=== PATIENT | male | born 1965 | race Two or more races ===

== ENCOUNTER 2016-12-11 17:01 | Emergency (ER) | payer BC ==
[~2016-12-11] VITALS: Ht 172.7 cm; Wt 68.0 kg
[2016-12-11 17:02] VITALS: BP 154/85
[2016-12-11] MEDS ORDERED: ALBU17IN INH (17:59)
[2016-12-11] MEDS ORDERED: ALBUTEROL 90 MCG/ACT 8GM HFA INHALER INH ONE (18:00)
== END 2016-12-11 18:21 | disposition home or self-care (01) ==
LOC: M ED 18:17
DX: J44.1 Chronic obstructive pulmonary disease with (acute) exacerbation (principal); F17.200 Nicotine dependence, unspecified, uncomplicated

== ENCOUNTER → 2016-12-20 | Outpatient (CLI) | payer BC ==
[~2016-12-20] MED LIST: ALBU17IN INH
--- NOTE | 2016-12-20 16:27 | REP ---
Chest two views HISTORY: Cough Comparison: None The lungs are clear. The heart is normal in size. The pulmonary vasculature is normal in appearance. The bony structure is intact. IMPRESSION: No acute disease. Signed by Cain Schulz MD 12/20/2016 04:19 P
[2016-12-20 19:45] LABS: BASO # 0.1 K/mm3 (0.0-0.2); BASO % 0.9 % (0.0-1.0); EOS # 0.1 K/mm3 (0.0-0.50); EOS % 1.4 % (0.0-3.0); LARGE UNSTAINED CELL # 0.2 K/mm3 (0.0-0.4); LARGE UNSTAINED CELL % 1.7 % (0.0-4.0); LYMPH # 2.8 K/mm3 (1.5-4.5); LYMPH % 31.6 % (24.0-44.0); MEAN CORPUSCULAR HEMOGLOBIN 30.8 pg (27.0-33.0); MEAN CORPUSCULAR HGB CONC 33.7 g/dl (32.0-36.5); MEAN CORPUSCULAR VOLUME 91.4 fl (80.0-96.0); MONO # 0.5 K/mm3 (0.0-0.8); MONO % 6.2 % (0.0-5.0); NEUTROPHILS # 4.9 K/mm3 (1.8-7.7); NEUTROPHILS % 58.1 % (36.0-66.0); PLATELET COUNT, AUTOMATED 221 k/mm3 (150-450); RED CELL DISTRIBUTION WIDTH 13.5 % (11.5-14.5); WHITE BLOOD COUNT 8.4 K/mm3 (4.0-10.0)
[2016-12-20 20:54] LABS: ALBUMIN/GLOBULIN RATIO 1.29 (1.00-1.93); ALKALINE PHOSPHATASE 79 U/L (45-117); ALT/SGPT 22 U/L (12-78); ANION GAP 6 MEQ/L (8-16); AST/SGOT 16 U/L (15-37); BILIRUBIN,TOTAL 0.4 MG/DL (0.2-1.0); BLOOD UREA NITROGEN 14 MG/DL (7-18); CALCIUM LEVEL 9.2 MG/DL (8.5-10.1); CARBON DIOXIDE LEVEL 29 MEQ/L (21-32); CHLORIDE LEVEL 106 MEQ/L (98-107); CHOLESTEROL LEVEL 175 MG/DL (<200); CREATININE FOR GFR 0.77 MG/DL (0.70-1.30); GLOMERULAR FILTRATION RATE > 60.0 (>56); GLUCOSE, FASTING 82 MG/DL (70-105); POTASSIUM SERUM 3.9 MEQ/L (3.5-5.1); SODIUM LEVEL 141 MEQ/L (136-145); TOTAL PROTEIN 7.1 GM/DL (6.4-8.2); TRIGLYCERIDES LEVEL 116 MG/DL (<150)
== END ==
LOC: M ADAMS 15:30
PROVIDERS: ATTEND Family Medicine
DX: Z00.00 Encounter for general adult medical examination without abnormal findings (principal); R05 Cough

== ENCOUNTER 2017-10-27 09:11 | Emergency (ER) | payer BC ==
[2017-10-27] MEDS: AUGMENTIN 875 MG TAB PO (09:51)
[2017-10-27 10:29] LABS: CK-MB VALUE MASS 3.2 NG/ML (0.0-3.6); CPK CREATINE PHOSPHOKINASE 123 U/L (39-308); TROPONIN I < 0.02 NG/ML (< 0.10)
== END 2017-10-27 11:20 | disposition home or self-care (01) ==
LOC: M ED 09:11
DX: K04.7 Periapical abscess without sinus (principal); R00.2 Palpitations; J43.9 Emphysema, unspecified; J45.909 Unspecified asthma, uncomplicated
CPT/HCPCS: 71046

== ENCOUNTER 2018-04-21 13:06 | Emergency (ER) | payer BC ==
[2018-04-21] MEDS: KETOROLAC 30 MG/ML VIAL (J1885) IV (13:59)
[2018-04-21] MEDS: NS 500 ML IV (13:59)
[2018-04-21 14:08] LABS: BASO # 0.1 10^3/uL (0.0-0.2); BASO % 0.7 % (0.0-1.0); EOS # 0.1 10^3/uL (0.0-0.50); EOS % 0.6 % (0.0-3.0); HEMOGLOBIN 15.7 g/dl (13.5-17.5); IMMATURE GRANULOCYTE % 0.2 % (0-3.0); LYMPH # 1.8 10^3/uL (1.5-4.5); LYMPH % 20.1 % (24.0-44.0); MEAN CORPUSCULAR HEMOGLOBIN 30.7 pg (27.0-33.0); MEAN CORPUSCULAR HGB CONC 34.1 g/dl (32.0-36.5); MEAN CORPUSCULAR VOLUME 89.8 fl (80.0-96.0); MONO # 0.4 10^3/uL (0.0-0.8); MONO % 4.8 % (0.0-5.0); NEUTROPHILS # 6.6 10^3/uL (1.8-7.7); NEUTROPHILS % 73.6 % (36.0-66.0); PLATELET COUNT, AUTOMATED 220 10^3/uL (150-450); RED BLOOD COUNT 5.12 10^6/uL (4.30-6.10)
[2018-04-21 14:18] LABS: AMORPHOUS SEDIMENT RFX MODERATE (NEGATIVE); KETONE, URINE AUTO RFX NEGATIVE (NEGATIVE); LEUKOCYTE ESTERASE UR AUTO RFX NEGATIVE (NEGATIVE); MUCUS, URINE RFX SMALL (NEGATIVE); NITRITE, URINE AUTO RFX NEGATIVE (NEGATIVE); RBC, URINE AUTO RFX 1 /HPF (0-3); SPECIFIC GRAVITY UR AUTO RFX 1.016 (1.002-1.035); SQUAM EPITHELIAL CELL UR AURFX 0 /HPF (0-6); WBC, URINE AUTO RFX 0 /HPF (0-3)
[2018-04-21 14:33] LABS: ALBUMIN 3.9 GM/DL (3.2-5.2); ALBUMIN/GLOBULIN RATIO 1.08 (1.00-1.93); ALKALINE PHOSPHATASE 98 U/L (45-117); ALT/SGPT 27 U/L (12-78); ANION GAP 7 MEQ/L (8-16); AST/SGOT 17 U/L (7-37); BILIRUBIN,DIRECT < 0.1 MG/DL (0.0-0.2); BILIRUBIN,TOTAL 0.3 MG/DL (0.2-1.0); BLOOD UREA NITROGEN 17 MG/DL (7-18); C REACTIVE PROTEIN QUANTITATIV < 0.30 MG/DL (0.00-0.30); CALCIUM LEVEL 9.1 MG/DL (8.5-10.1); CARBON DIOXIDE LEVEL 28 MEQ/L (21-32); CHLORIDE LEVEL 109 MEQ/L (98-107); CREATININE FOR GFR 0.98 MG/DL (0.70-1.30); GLOMERULAR FILTRATION RATE > 60.0 (>56); GLUCOSE, FASTING 131 MG/DL (70-100); POTASSIUM SERUM 4.3 MEQ/L (3.5-5.1); SODIUM LEVEL 144 MEQ/L (136-145); TOTAL PROTEIN 7.5 GM/DL (6.4-8.2)
== END 2018-04-21 15:27 | disposition home or self-care (01) ==
LOC: M ED 13:06
DX: N28.1 Cyst of kidney, acquired (principal); K08.409 Partial loss of teeth, unspecified cause, unspecified class; K02.9 Dental caries, unspecified; J44.9 Chronic obstructive pulmonary disease, unspecified; J45.909 Unspecified asthma, uncomplicated; F17.200 Nicotine dependence, unspecified, uncomplicated; Z87.442 Personal history of urinary calculi
CPT/HCPCS: J1885

== ENCOUNTER 2019-12-08 13:25 | Emergency (ER) | payer BC, MEDICAID, SELFPAY ==
[~2019-12-08] VITALS: Ht 172.7 cm; Wt 68.2 kg
[~2019-12-08 13:25] MED LIST changes: +AUGM875T28 PO; +KETO10TAB PO; +PROAAER10 INH
[2019-12-08 14:01] LABS: BASO # 0.1 10^3/uL (0.0-0.2); BASO % 0.7 % (0.0-1.0); EOS # 0.1 10^3/uL (0.0-0.5); EOS % 1.1 % (0.0-3.0); HEMATOCRIT 46.5 % (42.0-52.0); HEMOGLOBIN 15.6 g/dl (13.5-17.5); LYMPH # 1.8 10^3/uL (1.5-5.0); LYMPH % 24.3 % (24.0-44.0); MEAN CORPUSCULAR HEMOGLOBIN 30.2 pg (27.0-33.0); MEAN CORPUSCULAR HGB CONC 33.5 g/dl (32.0-36.5); MEAN CORPUSCULAR VOLUME 89.9 fl (80.0-96.0); MONO # 0.6 10^3/uL (0.0-0.8); MONO % 7.7 % (0.0-5.0); NEUTROPHILS # 4.9 10^3/uL (1.5-8.5); NEUTROPHILS % 66.1 % (36.0-66.0); PLATELET COUNT, AUTOMATED 207 10^3/uL (150-450); RED BLOOD COUNT 5.17 10^6/uL (4.30-6.10); WHITE BLOOD COUNT 7.4 10^3/uL (4.0-10.0)
[2019-12-08 14:12] LABS: INR 1.03; PROTHROMBIN TIME 13.2 SECONDS (11.8-14.0)
[2019-12-08] MEDS ORDERED: NITROGLYCERIN 2% OINT 1 GM *U/D* PKT TOP ONE (14:15)
[2019-12-08] MEDS ORDERED: ISOVUE-370 76% 100ML VIAL (Q9967) As Ordered ONE (14:21)
--- NOTE | 2019-12-08 14:29 | REP ---
REASON: Chest pain. FINDINGS: The technique utilized in obtaining the radiograph has magnified the cardiac silhouette and accentuated the interstitial markings. The superior mediastinal structures are midline. The cardiac silhouette is unremarkable in size, shape, and position. The diaphragmatic surfaces of the lungs are regular, and the costophrenic angles are clear. The pulmonary sotomayor are clear. The imaged osseous structures are intact. IMPRESSION: There is no acute cardiopulmonary disease. Electronically Signed by Keith Vera DO 12/08/2019 03:00 P
[2019-12-08 14:57] LABS: ALBUMIN 3.8 GM/DL (3.2-5.2); ALT/SGPT 28 U/L (12-78); BILIRUBIN,DIRECT 0.1 MG/DL (0.0-0.2); BILIRUBIN,TOTAL 0.3 MG/DL (0.2-1.0); BLOOD UREA NITROGEN 17 MG/DL (7-18); CALCIUM LEVEL 8.9 MG/DL (8.5-10.1); CARBON DIOXIDE LEVEL 26 MEQ/L (21-32); CHLORIDE LEVEL 107 MEQ/L (98-107); CK-MB VALUE MASS 14.2 NG/ML (<3.6); CPK CREATINE PHOSPHOKINASE 254 U/L (39-308); CREATININE FOR GFR 0.85 MG/DL (0.70-1.30); FREE T4 1.01 NG/DL (0.76-1.46); GLOMERULAR FILTRATION RATE > 60.0 (>56); GLUCOSE, FASTING 120 MG/DL (70-100); LIPASE 87 U/L (73-393); MB/CK RELATIVE INDEX 5.59 (< OR =4); POTASSIUM SERUM 4.2 MEQ/L (3.5-5.1); SODIUM LEVEL 141 MEQ/L (136-145); TOTAL PROTEIN 7.4 GM/DL (6.4-8.2); TROPONIN I 2.52 NG/ML (< 0.10)
[2019-12-08] MEDS ORDERED: ASPIRIN 81 MG CHEW TABLET PO ONE (15:15)
[2019-12-08] MEDS ORDERED: HEPARIN DRIP 25,000 UNITS in IV 1 EA IV SCH (15:41)
[2019-12-08] MEDS ORDERED: CLOPIDOGREL 300 MG TAB (PLAVIX) PO ONE (15:45)
[2019-12-08] MEDS ORDERED: HEPARIN SOD (PORCINE) 5000UNITS/ML VIAL (J1644 PER 1000UNITS) IV ONE (15:45)
[2019-12-08] MEDS ORDERED: METOPROLOL TART 25 MG TABLET PO ONE (15:45)
[2019-12-08 15:56] VITALS: BP 136/85
[2019-12-08 16:30] VITALS: BP 125/76
--- NOTE | 2019-12-08 16:30 | REP ---
REASON: Chest pain. CONTRAST: 100 mL Isovue 370. PRIORS: None. There is excellent visualization of the thoracic aorta with optimal contrast opacification. There is no aneurysm or dissection. Although not performed as a pulmonary angio CT, there is also good visualization of the pulmonary vascularity showing no abnormalities. There are no pleural or pericardial effusions. There is no mediastinal or hilar mass or adenopathy. The imaged upper abdomen shows a partially imaged left renal cyst. The imaged osseous structures are within normal limits. Evaluation of the lung sotomayor shows evidence of biapical pleuroparenchymal scarring along with parenchymal bulla and pleural blebs particularly in the lung apical regions but seen scattered throughout the lung sotomayor. In the superior segment of the right lower lobe, there is 7 mm sized somewhat irregular nodule. In the lateral basal segment of the right lower lobe, there is a 1.1 cm sized subtle ground-glass opacity. IMPRESSION: 1. No evidence of an intrathoracic vascular abnormality as described above. 2. Ground-glass opacity and nodule in the right lung as described above. According to the revised Fleischner society criteria, a 3-month followup CT examination of the chest is warranted. There are no priors for comparison. 3. Chronic lung field changes as described above. There is no revised Fleischner society criteria on the recommendation for followup of such chronic lung field findings. They too, can be followed in the 3-month recommended time period. Electronically Signed by Keith Vera DO 12/09/2019 10:53 A
--- NOTE | 2019-12-08 16:54 | REP ---
CT ANGIOGRAM ABDOMEN AND PELVIS: Following the intravenous administration of 100 of Isovue 370, CT angiogram of the abdomen and pelvis is performed, with sagittal, coronal and 3D MIP reconstruction images. Severe atherosclerotic plaquing and narrowing is seen of the distal abdominal aorta. There is occlusion of the distal abdominal aorta just above the bifurcation. Multiple collateral vessels extend distally. On the right, there is reconstitution of the proximal significantly narrowed external iliac artery, which becomes relatively normal in caliber distally. There is mild to moderate atherosclerotic plaquing of the right common femoral and superficial femoral arteries with patent flow distally into the right lower extremity. On the left, there is reconstitution of the right distal aspect of the external iliac artery. There is mild to moderate atherosclerotic plaquing and narrowing of the left common femoral and superficial femoral arteries with patent flow into the left lower extremity. Liver, spleen, adrenals, pancreas are unremarkable. There is a 2 cm cyst in the upper pole of the right kidney and a 3.2 cm cyst in the mid left kidney. There is no hydronephrosis bilaterally. There is no adenopathy, free air or free fluid. No bowel wall thickening is seen. The appendix is normal. Urinary bladder appears unremarkable. There are mild degenerative changes of the spine. IMPRESSION: Severe atherosclerotic disease distal abdominal aorta. Distal abdominal aorta is occluded just above the bifurcation. There is reconstitution of a thin right external iliac artery which becomes relatively normal in caliber at its distal aspect. There is reconstitution of the distal left external iliac artery. There is patent flow through both common femoral and superficial femoral arteries into both lower extremities. Electronically Signed by Yoandy Cordero MD 12/08/2019 07:50 P
--- NOTE | 2019-12-09 09:10 | ECGEPIP ---
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
--- NOTE | 2019-12-09 09:11 | ECGEPIP ---
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
== END 2019-12-08 16:41 | disposition short-term general hospital (02) ==
LOC: M ED 13:25
DX: I21.4 Non-ST elevation (NSTEMI) myocardial infarction (principal); J44.9 Chronic obstructive pulmonary disease, unspecified; F17.218 Nicotine dependence, cigarettes, with other nicotine-induced disorders
CPT/HCPCS: 71045; 71275; 74174; 80047; 80048; 80076; 82550; 82553; 83690; 84439; 84443; 85025; 85610; 85730; 93005; 93041; 94760; 96361; 96374; 99285; J1644; Q9967

== ENCOUNTER 2020-04-12 02:15 | Inpatient (IN) | payer MEDICAID, OTHER ==
[2020-04-12] MEDS ORDERED: propofoL 200 MG/20 ML VIAL ONE (07:14)
[2020-04-12] MEDS ORDERED: MIDAZOLAM INJ 2MG/2ML VIAL (J2250 PER 1MG) ONE (07:14)
[2020-04-12] MEDS ORDERED: SUGAMMADEX SODIUM 500 MG/5 ML VIAL (BRIDION) ONE (07:14)
[2020-04-12] MEDS ORDERED: fentaNYL 100 MCG/2 ML INJECTION (J3010) ONE ×2 (07:14→11:42)
[2020-04-12] MEDS ORDERED: ONDANSETRON 4MG/2ML VIAL ONE (07:14)
[2020-04-12] MEDS ORDERED: ACETAMINOPHEN 1000MG 100ML IV BTL (OFIRMEV) (J0131 PER 10MG) ONE (07:14)
[2020-04-12] MEDS ORDERED: LIDOCAINE 2% 100MG/5ML SDV (FOR ANES.) ONE (07:14)
[2020-04-12] MEDS ORDERED: dexameTHASONE 4 MG/ML 1ML VIAL (J1100 PER 1MG) ONE (07:14)
[2020-04-12] MEDS ORDERED: ROCURONIUM BROMIDE 50 MG/5 ML VIAL ONE ×3 (07:14→10:06)
[2020-04-12] MEDS ORDERED: ceFAZolin 2 GM/D5W 50 ML IV BAG (J0690 PER 500MG) As Ordered ONE ×2 (07:22→11:49)
[2020-04-12] MEDS ORDERED: HEPARIN SOD (PORCINE) 5000UNITS/ML 1ML VIAL/SYRINGE ONE ×2 (08:28→09:32)
[2020-04-12] MEDS ORDERED: GLYCOPYRROLATE INJ 0.2 MG/ML 2 ML VIAL ONE (08:53)
[2020-04-12] MEDS ORDERED: BUPIVACAINE/EPIN 0.5% 30 ML VIAL As Ordered ONE (11:49)
[2020-04-12] MEDS ORDERED: HEPARIN SOD (PORCINE) 5000UNITS/ML 1ML VIAL/SYRINGE As Ordered ONE ×2 (11:49→12:07)
[2020-04-12] MEDS ORDERED: PERCOCET 5MG/325MG TAB As Ordered ONE (14:26)
[2020-04-12] MEDS ORDERED: oxyCODONE 5MG TAB As Ordered ONE (14:27)
[2020-04-12] MEDS ORDERED: ATORVASTATIN 20 MG TAB ONE (20:40)
[2020-04-12] MEDS ORDERED: PERCOCET 5MG/325MG TAB ONE ×2 (22:25)
[2020-04-13] MEDS ORDERED: PERCOCET 5MG/325MG TAB ONE ×3 (06:51→17:41)
[2020-04-13] MEDS ORDERED: amLODIPine 5 MG TAB ONE (09:37)
[2020-04-13] MEDS ORDERED: ASPIRIN 81 MG ENTERIC TAB ONE (09:37)
[2020-04-13] MEDS ORDERED: CLOPIDOGREL 75 MG TAB ONE (14:27)
[2020-04-13] MEDS ORDERED: DOCUSATE SODIUM 100 MG CAP ONE (14:28)
[2020-04-13] MEDS ORDERED: PERCOCET 5MG/325MG TAB PO PRN (20:30)
[2020-04-13] MEDS ORDERED: diazePAM 5 MG TAB PO PRN (20:30)
[2020-04-13] MEDS ORDERED: ONDANSETRON 4MG/2ML VIAL IV PRN (20:30)
[2020-04-13] MEDS: ATORVASTATIN 20 MG TAB PO SCH (21:34)
[2020-04-13] MEDS: DOCUSATE SODIUM 100 MG CAP PO SCH (21:34)
[2020-04-13 21:36] LABS: HEMATOCRIT 41.5 % (42.0-52.0); HEMOGLOBIN 14.2 g/dl (13.5-17.5); MEAN CORPUSCULAR HEMOGLOBIN 30.7 pg (27.0-33.0); MEAN CORPUSCULAR HGB CONC 34.2 g/dl (32.0-36.5); MEAN CORPUSCULAR VOLUME 89.8 fl (80.0-96.0); PLATELET COUNT, AUTOMATED 193 10^3/uL (150-450); RED BLOOD COUNT 4.62 10^6/uL (4.30-6.10); WHITE BLOOD COUNT 11.9 10^3/uL (4.0-10.0)
[2020-04-13 21:56] LABS: BASO % 0.3 % (0.0-1.0); EOS # 0.1 10^3/uL (0.0-0.5); EOS % 0.8 % (0.0-3.0); LYMPH # 2.3 10^3/uL (1.5-5.0); LYMPH % 19.9 % (24.0-44.0); MONO % 8.4 % (0.0-5.0); NEUTROPHILS # 8.2 10^3/uL (1.5-8.5); NEUTROPHILS % 70.3 % (36.0-66.0)
[2020-04-13 22:00] VITALS: BP 145/83
[2020-04-14] MEDS ORDERED: BISACODYL 10 MG SUPP PR PRN (00:15)
[2020-04-14 02:00] VITALS: BP 120/84
[2020-04-14] MEDS: PERCOCET 5MG/325MG TAB PO PRN ×2 (04:41→12:28)
[2020-04-14 06:00] VITALS: BP 159/82
[2020-04-14] MEDS ORDERED: AMLO1TAB24 PO (06:22)
[2020-04-14] MEDS ORDERED: CLOP75TA2 PO (06:22)
[2020-04-14] MEDS ORDERED: ASPI1CHW3 PO (06:22)
[2020-04-14] MEDS ORDERED: ATOR40TA75 PO (06:22)
[2020-04-14 06:53] LABS: HEMATOCRIT 41.5 % (42.0-52.0); HEMOGLOBIN 14.4 g/dl (13.5-17.5); MEAN CORPUSCULAR HEMOGLOBIN 31.2 pg (27.0-33.0); MEAN CORPUSCULAR HGB CONC 34.7 g/dl (32.0-36.5); PLATELET COUNT, AUTOMATED 165 10^3/uL (150-450); RED BLOOD COUNT 4.61 10^6/uL (4.30-6.10); WHITE BLOOD COUNT 11.4 10^3/uL (4.0-10.0)
[2020-04-14 07:26] LABS: BLOOD UREA NITROGEN 13 MG/DL (7-18); CALCIUM LEVEL 8.6 MG/DL (8.5-10.1); CARBON DIOXIDE LEVEL 27 MEQ/L (21-32); CHLORIDE LEVEL 104 MEQ/L (98-107); CREATININE FOR GFR 0.75 MG/DL (0.70-1.30); GLOMERULAR FILTRATION RATE > 60.0 (>56); GLUCOSE, FASTING 108 MG/DL (70-100); POTASSIUM SERUM 3.6 MEQ/L (3.5-5.1); SODIUM LEVEL 136 MEQ/L (136-145)
[2020-04-14] MEDS: CLOPIDOGREL 75 MG TAB PO SCH (08:03)
[2020-04-14] MEDS: amLODIPine 5 MG TAB PO SCH (08:03)
[2020-04-14] MEDS: ASPIRIN 81 MG ENTERIC TAB PO SCH (08:03)
[2020-04-14] MEDS: DOCUSATE SODIUM 100 MG CAP PO SCH ×2 (08:03→20:10)
[2020-04-14] MEDS ORDERED: ATORVASTATIN 20 MG TAB PO SCH (09:00)
--- NOTE | 2020-04-14 09:54 | IPNPDOC ---
Date Seen The patient was seen on 04/14/20. Progress Note Patient seen and examined postoperative day 2 status post bilateral common femoral endarterectomies and right axillary to femoral-femoral bypass with 8 mm ringed PTFE graft. The patient is doing well. His pain is controlled although he still has right flank pain from the tunneling. He has been getting out of bed with assist. He still has not been able to ambulate in the [place], but he would like to and we will order physical therapy. Once he is getting around better, likely tomorrow, we will likely be able to discharge home. He says he has not had a shower, we like to work on that today as well. He is tolerating a diet, good urine output, no complaints. On exam, the patient's 3 incisions on the right chest in the bilateral groins are all clean dry and intact with no drainage on the dressings. The incisions were thoroughly cleaned and dry dressings were placed over the sundar. The keturah ent has good inflow through the bypass and triphasic flow at the common femoral arteries and profunda arteries bilaterally. DP and PT flow was monophasic biphasic bilaterally. His feet are warm and well-perfused. His right upper extremity is warm and well perfused with a palpable radial pulse. A/P: Very pleasant 54-year-old gentleman with severe peripheral vascular disease and known history of tobacco abuse with lifestyle limiting claudication now has postoperative day 2 status post right axillofemoral from bypass and bilateral common femoral endarterectomies with patch angioplasty. 1. Will order PT to see if patient can improve with ambulation prior to discharge home. 2. Continue analgesia when necessary. Okay for ice to incisions are right flank as needed for pain. 3. Continue aspirin and Plavix and statin daily. 4. Possible discharge home tomorrow or the following day depending on his ability to ambulate and get around safely at home. It is possible he will need a walker at home if he does not have one. We appreciate the hospitalist excellent care of this patient. VS, I&O, 24H, Fishbone Vital Signs/I&O Vital Signs Date Time Temp Pulse Resp B/P (MAP) Pulse Ox O2 Delivery O2 Flow Rate FiO2 04/14/20 08:03 69 159/82 04/14/20 06:00 97.2 18 93 Room Air I&O- Last 24 Hours up to 6 AM 04/14/20 06:00 Intake Total 450 ml Output Total 900 ml Balance -450 ml Laboratory Data 24H LABS Laboratory Tests 2 04/14/20 06:00: Nucleated Red Blood Cells % (auto) 0.0, Anion Gap 5L, Glomerular Filtration Rate > 60.0, Calcium Level 8.6 CBC/BMP Laboratory Tests 04/14/20 06:00 DAVON DOS SANTOS MD Apr 14, 2020 09:54
[2020-04-14 14:00] VITALS: BP 148/80
--- NOTE | 2020-04-14 15:22 | IPNPDOC ---
Date Seen The patient was seen on 04/14/20. Progress Note SUBJECTIVE: Patient is a 54-year-old male with tobacco abuse and atherosclerotic disease here for bilateral femoral endarterectomy and fem-fem bypass for claudication. Today is POD 2. No events overnight, he did well. Denies fever/chills, chest pain, shortness of breath, abdominal pain, diarrhea, or dysuria. He has a chronic cough. Still no bowel movement, but is passing gas. OBJECTIVE PHYSICAL EXAMINATION: VITAL SIGNS: Please see below. GENERAL: Comfortable, in no distress HEENT: Head normocephalic, atraumatic, EOMI, Sclera clear CARDIOVASCULAR: Regular rate and rhythm RESPIRATORY: Decreased breath sounds ABDOMINAL: Soft, non-tender, normal bowel sounds EXTREMITIES: No pitting edema NEUROLOGICAL: A&Ox3, CN3-12 grossly intact PSYCHOLOGICAL: Normal mood and affect LABORATORY DATA, IMAGING STUDIES, MICROBIOLOGY: Please see below. ASSESSMENT AND PLAN: This is a 54-year-old male POD 2 from bilateral femoral endarterectomy and fem-fem bypass. He has done well after the surgery and has done with physical therapy. If he does go home tomorrow, he will need a walker. PROBLEMS: 1. Atherosclerotic disease - POD 2 from bilateral femoral endarterectomy and fem-fem bypass. Did well from surgery. Continue DAPT therapy and statin. 2. Hypertension - Continue amlodipine 3. Tobacco abuse - Encourage cessation DISPOSITION: Possible discharge tomorrow. VS, I&O, 24H, Fishbone Vital Signs/I&O Vital Signs Date Time Temp Pulse Resp B/P (MAP) Pulse Ox O2 Delivery O2 Flow Rate FiO2 04/14/20 14:00 99.2 66 16 148/80 (102) 95 Room Air I&O- Last 24 Hours up to 6 AM 04/14/20 06:00 Intake Total 450 ml Output Total 900 ml Balance -450 ml Laboratory Data 24H LABS Laboratory Tests 2 04/14/20 06:00: Nucleated Red Blood Cells % (auto) 0.0, Anion Gap 5L, Glomerular Filtration Rate > 60.0, Calcium Level 8.6 CBC/BMP Laboratory Tests 04/14/20 06:00 GREGORIO ZAPATA DO Apr 14, 2020 15:22
[2020-04-14] MEDS: ATORVASTATIN 20 MG TAB PO SCH (20:10)
[2020-04-14 22:00] VITALS: BP 134/91
[2020-04-15] MEDS: PERCOCET 5MG/325MG TAB PO PRN (01:53)
[2020-04-15 06:00] VITALS: BP 180/85
[2020-04-15 06:41] VITALS: BP 120/72
[2020-04-15] MEDS: ASPIRIN 81 MG ENTERIC TAB PO SCH (08:52)
[2020-04-15] MEDS: CLOPIDOGREL 75 MG TAB PO SCH (08:52)
[2020-04-15] MEDS: DOCUSATE SODIUM 100 MG CAP PO SCH (08:52)
[2020-04-15 08:57] VITALS: BP 131/83
[2020-04-15] MEDS: amLODIPine 5 MG TAB PO SCH (08:57)
[2020-04-15] MEDS ORDERED: CLOP75TA2 PO (11:20)
[2020-04-15] MEDS ORDERED: PERCOCET PO (11:20)
--- NOTE | 2020-04-15 14:21 | IPNPDOC ---
Text Note Date of Service The patient was seen on 04/15/20. NOTE Vascular Surgery Dr Hurt. Patient seen and examined postoperative day 3 status post bilateral common femoral endarterectomies and right axillary to femoral-femoral bypass with 8 mm ringed PTFE graft. The patient is doing well. His pain is controlled. He states he has been getting out of bed with assist, ambulating. Re inforced with his nurse to shower today prior to DC. Pt with no complaints. On exam, the patient's 3 incisions on the right chest in the bilateral groins are all clean dry and intact with no drainage on the dressings. The incisions were thoroughly cleaned and dry dressings were placed over the sundar. The p atient has good inflow through the bypass and triphasic flow at the common femoral arteries and profunda arteries bilaterally. DP and PT was palpable RLE, palpable DP Lt, PT obtained with doppler. His feet are warm and well-perfused. His right upper extremity is warm and well perfused with a palpable radial pulse. A/P: Very pleasant 54-year-old gentleman with severe peripheral vascular disease and known history of tobacco abuse with lifestyle limiting claudication now has postoperative day 3 status post right axillofemoral from bypass and bilateral common femoral endarterectomies with patch angioplasty. 1. OK per Dr Hurt for discharge home after shower today. 2. Continue analgesia when necessary. Okay for ice to incisions are right flank as needed for pain. 3. Continue aspirin and Plavix and statin daily. 4. Plan for walker at home if he does not have one. 5. Discussed wound care daily. Remove dressings and Shower daily. Pat dry with clean towel. Replace dry dressings. 6. FU in office next week. VS,Fishbone, I+O VS, Fishbone, I+O Vital Signs Date Time Temp Pulse Resp B/P (MAP) Pulse Ox O2 Delivery O2 Flow Rate FiO2 04/15/20 08:57 85 131/83 04/15/20 06:00 97.4 17 95 Room Air I&O- Last 24 Hours up to 6 AM 04/15/20 06:00 Intake Total 1050 ml Balance 1050 ml Izzy Rodriguez Apr 15, 2020 14:21
--- NOTE | 2020-04-15 19:10 | DS.PDOC ---
Discharge Summary General Date of Admission Apr 12, 2020 at 02:15 Date of Discharge 04/15/20 Attending Physician: TOBY PEARL MD Specialist/Consultants Involve: DAVON HURT MD Discharge Summary PROCEDURES PERFORMED DURING STAY: Bilateral femoral endarterectomy and fem-fem bypass ADMITTING/DISCHARGE DIAGNOSES: 1. PAD s/p Bilateral femoral endarterectomy and fem-fem bypass 2. HTN 3. Tobacco abuse; cessation counseling COMPLICATIONS/CHIEF COMPLAINT: claudication HISTORY OF PRESENT ILLNESS/HOSPITAL COURSE: 54 y/o M with PMHx tobacco abuse, HTN, PAD who presents with claudication, and is now POD 3 s/p Bilateral femoral endarterectomy and fem-fem bypass. Pt tolerated procedure well. Notes improvement of his claudication. Pt denies CP/SOB/palpitations. No N/V/ABd pain. Wound care and activity instructions provided to pt per Dr. Hurt. Pt is hemodynamically stable, cleared for d/c by vascular. DISCHARGE MEDICATIONS: Please see below. ALLERGIES: Please see below. PHYSICAL EXAMINATION ON DISCHARGE: Vitals: (see below) General: No acute distress, laying comfortably in bed. HEENT: Moist mucous membranes. Neck: No JVD or lymphadenopathy Cardiac: RRR, No murmurs Pulm: Clear to auscultation b/l. No wheezing, rhonchi Abd: NT/ND + BS Ext: No edema or cyanosis. Incision sites clean and dry. Distal pulses intact. No cyanosis. LABORATORY DATA: Please see below. PROGNOSIS: Good ACTIVITY: As tolerated as recommended by Dr. Hurt DIET: Low Na/Low Cholesterol DISCHARGE PLAN/DISPOSITION: Home DISCHARGE INSTRUCTIONS: 1.F/u with PCP and Dr. Hurt in 1 week. Return to ED if symptoms worsen. DISCHARGE CONDITION: Stable. TIME SPENT ON DISCHARGE: 35 minutes. Vital Signs/I&Os Vital Signs Date Time Temp Pulse Resp B/P (MAP) Pulse Ox O2 Delivery O2 Flow Rate FiO2 04/15/20 08:57 85 131/83 04/15/20 06:00 97.4 17 95 Room Air I&O- Last 24 Hours up to 6 AM 04/15/20 06:00 Intake Total 1050 ml Balance 1050 ml Discharge Medications Scheduled Amlodipine Besylate (Amlodipine Besylate) 5 Mg Tablet, 5 MG PO DAILY, (Reported) Aspirin (Aspirin) 81 Mg Tab.chew, 81 MG PO DAILY, (Reported) Atorvastatin Calcium (Atorvastatin Calcium) 40 Mg Tablet, 40 MG PO QHS, ( Reported) Clopidogrel Bisulfate (Clopidogrel) 75 Mg Tablet, 75 MG PO DAILY Scheduled PRN Oxycodone/Acetaminophen (Oxycodone-Acetaminophen 5-325) 1 Each Tablet, 1 TAB PO Q6HP PRN for MODERATE BREAKTHROUGH PAIN Allergies Coded Allergies: No Known Allergies (Verified , 04/21/18) TOBY PEARL MD Apr 15, 2020 19:10
[2020-04-17 23:20] LABS: BLOOD UREA NITROGEN 16 MG/DL (7-18); CALCIUM LEVEL 8.9 MG/DL (8.5-10.1); CARBON DIOXIDE LEVEL 29 MEQ/L (21-32); CHLORIDE LEVEL 108 MEQ/L (98-107); CREATININE FOR GFR 0.82 MG/DL (0.70-1.30); GLOMERULAR FILTRATION RATE > 60.0 (>56); GLUCOSE, FASTING 107 MG/DL (70-100); POTASSIUM SERUM 4.1 MEQ/L (3.5-5.1); SODIUM LEVEL 140 MEQ/L (136-145)
[2020-04-18 16:46] LABS: HEMATOCRIT 46.4 % (42.0-52.0); HEMOGLOBIN 15.8 g/dl (13.5-17.5); MEAN CORPUSCULAR HEMOGLOBIN 30.8 pg (27.0-33.0); MEAN CORPUSCULAR HGB CONC 34.1 g/dl (32.0-36.5); MEAN CORPUSCULAR VOLUME 90.4 fl (80.0-96.0); PLATELET COUNT, AUTOMATED 218 10^3/uL (150-450); RED BLOOD COUNT 5.13 10^6/uL (4.30-6.10)
[2020-04-18 16:49] LABS: INR 0.94; PARTIAL THROMBOPLASTIN TIME 36.2 SECONDS (25.0-38.4); PROTHROMBIN TIME 12.8 SECONDS (11.8-14.0)
--- NOTE | 2020-06-03 13:38 | RO ---
DATE OF OPERATION: 04/12/2020 PREOPERATIVE DIAGNOSIS: Aortoiliac occlusive disease with bilateral lower extremity lifestyle-limiting claudication. POSTOPERATIVE DIAGNOSIS: Aortoiliac occlusive disease with bilateral lower extremity lifestyle-limiting claudication. PROCEDURES: * Bilateral common femoral endarterectomies with patch angioplasty. * Right [id number]-ri-yjjmmyazvbauj bypass with 8 mm ring PTFE graft. SURGEON: Alana Hurt MD ANESTHESIA: General endotracheal anesthesia and local anesthesia. INDICATION FOR PROCEDURE: Mr. Ortega is a very pleasant gentleman with severe peripheral vascular disease secondary to aortoiliac occlusive disease from chronic tobacco abuse. The patient was extensively counseled about options for extra-anatomic bypass including an aorto bi-fem bypass and a right axillary fem- fem bypass. After reviewing CT imaging of the chest, he did have a suitable right axillary artery as a donor for the lower extremity perfusion. I went over both options extensively with the patient and he elected for the less invasive option of the axillary fem-fem bypass. I discussed with him that either way we would also do endarterectomies of the common femoral arteries to improve overall perfusion to lower extremities. After extensive counseling, the patient was agreeable to proceed. Appropriate medical and cardiac clearance was obtained prior to the procedure. REPORT OF OPERATION: The patient was brought to the OR in stable condition and placed supine on the OR table. General anesthesia and antibiotics were administered without complication. His right chest, flank and bilateral groins were prepped and draped in a sterile fashion. Ioban was placed over the skin. A timeout was performed. Local anesthesia was administered to the skin and subcutaneous tissue over the inguinal ligaments in both groins and 2 cm distal to the right clavicle transversely over the chest. We then began with the exposure of the right axillary artery. An incision was made transversely on the right chest 2 cm distal to the clavicle and carried down through the subcutaneous tissue with Bovie cautery. Blunt dissection was used to separate the fibers of the pectoralis major muscle and we then incised the fascia below to expose the axillary vein. Once the vein was identified, it was carefully skeletonized proximally and distally within the incision. We skeletonized the vein as far medially as possible to prevent tension on the anastomosis with range of motion of his right arm. Vessel loops were placed on the artery distally and room was cleared for a clamp proximally. Next, an oblique incision was made over the right inguinal ligament and carried down through the subcutaneous tissue with Bovie cautery. We continued our dissection down through the fascia until the femoral sheath was encountered which was opened longitudinally. The femoral artery was skeletonized proximally and distally within the incision. Vessel loops were placed around the circumflex vessels, the profunda, and the SFA. Next, an oblique incision was made over the left inguinal ligament and carried down through the subcutaneous tissue with Bovie cautery. The fascia was incised as dissection progressive down to the femoral sheath. The femoral sheath was opened longitudinally exposing the femoral vessels. We skeletonized the femoral artery proximally and distally within the incision and vessel loops were placed around the circumflex vessels, the SFA, and the profunda. Five thousand (5000) units of heparin was given and allowed to circulate. We then returned our attention to the right-sided incisions. A tunneler was used to tunnel an 8 mm ringed PTFE graft. First, a tunnel was made behind the right axillary vein, behind the right pectoralis minor muscle, down over the right chest in the mid axillary line, over the right flank, anterior to the anterosuperior iliac spine, and down to the right femoral artery. The longest part of the T-shaped graft was then tunneled along this area. We then made a smaller tunnel from the right groin to the left groin and the short aspect of the graft was tunneled from the right femoral to the left femoral. Once both aspects of the graft had been tunneled, the proximal graft near the axillary artery was beveled and left a few centimeters long for a tension-free anastomosis that will allow range of motion without tension on the anastomosis. A clamp was placed proximally on the axillary artery and the vessel loops were secured. We then made an arteriotomy and the graft was anastomosed to the artery in an end-to-side fashion with 5-0 hemostatic Prolene. A clamp was placed on the graft near the anastomosis, and the inflow and outflow artery were flushed. The anastomosis was irrigated with heparinized saline and the final sutures were placed. We then restored flow through the axillary artery and noted the hand to be warm and well perfused. We then beveled the right femoral aspect of the graft for a long arterial anastomosis over the distal common femoral artery and profunda. We then placed a clamp proximally on the right femoral artery and secured the vessel loops. A long arteriotomy was made over the right femoral artery onto the SFA. An endarterectomy was performed and the plaque was sent for pathology. We then closed the arteriotomy with a XenoSure patch and a running 6- 0 Prolene suture. Before the final sutures were placed, we flushed the inflow and outflow arteries and irrigated with heparinized saline. After the patch was noted to be hemostatic, we then re-secured our clamps and vessel loops and an arteriotomy was made in the patch and the graft was anastomosed to the patch over the common femoral artery in an end-to-side fashion with hemostatic 5-0 Prolene suture. Before the final sutures were placed, we flushed the inflow and outflow of the graft and then restored flow to the right leg. Before restoring flow through the graft and flushing, we did clamp the [id number] femorofemoral aspect of the graft to prevent clotting while doing our left anastomosis. Additional heparin was given before each aspect of this procedure. We turned our attention to the left groin and a clamp was placed proximally on the femoral artery and the vessel loops were secured. A long arteriotomy was made and an endarterectomy was performed. The plaque was sent for pathology. We then anastomosed a XenoSure patch over the arteriotomy with running 6-0 Prolene suture. Before the final sutures were placed, we flushed the inflow and outflow artery and then restored flow. Once hemostasis was noted, we re-secured the clamp and the vessel loops and beveled the left femoral aspect of the graft for a long arterial anastomosis. We then anastomosed the graft to the patch in an end-to-side fashion with 5-0 Prolene hemostatic suture. Before the final sutures were placed, we flushed through the graft as well as the inflow and outflow arteries and irrigated with heparinized saline. We then placed our final sutures and flow through the graft was restored. At this point, we noted an excellent pulse in the graft, and Doppler confirmed triphasic signal in the common femoral arteries and profunda arteries bilaterally. The patient also had a biphasic signal in the right axillary artery distal to the graft. All three incisions were copiously irrigated with warm saline. Good hemostasis was noted. We then closed the chest incision by approximating the deep fascia with a running Vicryl suture and allowing the pectoralis minor muscle to resume its normal anatomic position. The superficial fascial layers were closed with running Vicryl suture and the skin was approximated with the dermal interrupted Vicryl suture. The skin itself was closed with sundar. The groin incisions were both closed in a similar fashion. The femoral sheath was approximated with a running Vicryl suture. The deep fascial layers were closed with running Vicryl suture in three layers. The deep dermal layer was approximated with interrupted 4-0 Vicryl suture. The skin was closed with skin sundar. All three incisions were cleaned and dried. 4x4's and Tegaderm were placed over the incisions as final dressings. The patient was then allowed to awaken from anesthesia and was taken to recovery in stable condition. He tolerated anesthesia and the procedure well. He had palpable pulses in both feet in recovery. SPECIMENS: Plaque from the right and left femoral arteries were sent for pathology. DRAINS: No drains. ESTIMATED BLOOD LOSS: 100 cc. COMPLICATIONS: None. PLAN: Our plan will be to admit the patient for the next few days for supportive care. We will encourage ambulation and light activity, but no strenuous exercise or lifting greater than 5 pounds. We will plan to start Plavix postoperative day 1 or 2, and it is okay to resume all home medications except for a nicotine patch. We do not want any vasoconstrictors so soon after surgery. Depending on the patient's progress postoperatively, we will plan to discharge him between postoperative day 2 and postoperative day 4. We appreciate the opportunity to participate in the care of this patient. CODY
[2020-07-04 13:01] LABS: BLOOD UREA NITROGEN 18 MG/DL (7-18); CARBON DIOXIDE LEVEL 27 MEQ/L (21-32); CHLORIDE LEVEL 111 MEQ/L (98-107); CREATININE FOR GFR 0.86 MG/DL (0.70-1.30); GLOMERULAR FILTRATION RATE > 60.0 (>56); GLUCOSE, FASTING 98 MG/DL (70-100); POTASSIUM SERUM 3.7 MEQ/L (3.5-5.1); SODIUM LEVEL 139 MEQ/L (136-145)
== END 2020-04-15 14:08 | disposition home or self-care (01) | DRG 181 ==
LOC: M MSPAV 02:15
PROVIDERS: ADMIT Surgery Vascular Surgery; ATTEND Internal Medicine
PROC: 041K0JJ Bypass Right Femoral Artery to Left Femoral Artery with Synthetic Substitute, Open Approach (ICD-10-PCS; principal; 2020-04-12)
PROC: 04CL0ZZ Extirpation of Matter from Left Femoral Artery, Open Approach (ICD-10-PCS; 2020-04-12)
PROC: 04CK0ZZ Extirpation of Matter from Right Femoral Artery, Open Approach (ICD-10-PCS; 2020-04-12)
DX: I70.213 Atherosclerosis of native arteries of extremities with intermittent claudication, bilateral legs (principal); I10 Essential (primary) hypertension; F17.200 Nicotine dependence, unspecified, uncomplicated; Z79.899 Other long term (current) drug therapy; Z79.82 Long term (current) use of aspirin

== ENCOUNTER → 2020-05-26 | Outpatient (CLI) | payer MEDICAID, OTHER ==
[~2020-05-26] MED LIST changes: +AMLO1TAB24 PO; +ASPI1CHW3 PO; +ATOR40TA75 PO; +CLOP75TA2 PO; +PERCOCET PO
--- NOTE | 2020-06-02 14:57 | REP ---
BILATERAL LOWER EXTREMITY DUPLEX DOPPLER ARTERIAL ULTRASOUND HISTORY: Right pumqzanq-cw-fcsvltxip bypass graft placed 04/12/2020. TECHNIQUE: Real-time sonographic evaluation and duplex Doppler interrogation of bilateral lower extremity arterial systems performed, including right gtcasulc-ed-mlqoxvvzp bypass graft. FINDINGS: Incidental note is made of nonocclusive thrombus in the right axillary vein with occlusive thrombus in the right basilic vein. There is patent flow through the right xzummpnh-[id number]-brkfoeedq bypass graft. Peak systolic velocity at the right axillary artery near the bypass anastomosis is 131.4 cm/s with triphasic waveform. Peak systolic velocity at the anastomosis is 244.9 cm/s. At the level of the right flank, the peak systolic velocity is 111.6 cm/s, at the right hip 125.6 cm/s, in the midline 58.7 cm/s, and at the left hip 78.2 cm/s. At the anastomosis with the right common femoral artery peak systolic velocity is 47.2 cm/s and at the anastomosis of the left common femoral artery 47.1 cm/s. Monophasic waveforms are seen throughout the bypass graft. Ankle brachial indices (RAKEL) right is 1.2 and left1.0. Cmeh-ab-aiekiizd scattered plaquing is seen throughout both lower extremity arterial systems. Biphasic and triphasic waveforms are seen diffusely bilaterally except for monophasic waveforms in the profunda arteries and diffusely throughout the left posterior tibial artery. BILATERAL LOWER EXTREMITY ARTERIAL VELOCITY CHART RIGHT PSV (cm/s) LEFT PSV (cm/s) Common femoral artery 67.3 66.1 Profunda 67.1 152.0 Proximal SFA 52.4 49.8 Mid SFA 55.0 62.9 Distal SFA 48.4 60.0 Popliteal 28.6 28.8 Proximal TAIWO 25.3 30.0 Tibioperoneal trunk 21.5 20.9 Proximal FLEET DRIVER 28.2 14.2 Distal FLEET DRIVER 23.0 36.6 Distal TAIWO 24.0 24.8 MTDD
== END ==
LOC: M RAD 11:38
PROVIDERS: ATTEND Physician Assistant
DX: I70.213 Atherosclerosis of native arteries of extremities with intermittent claudication, bilateral legs (principal); Z95.828 Presence of other vascular implants and grafts; Z87.891 Personal history of nicotine dependence

== ENCOUNTER 2020-08-02 23:28 | Emergency (ER) | payer OTHER ==
[~2020-08-02] VITALS: Ht 172.7 cm; Wt 71.7 kg
[2020-08-02] MEDS ORDERED: ELIQ5TAB (23:36)
[2020-08-03] MEDS ORDERED: NS 1,000 ML IV ONE (00:45)
[2020-08-03 00:57] LABS: BASO # 0.1 10^3/uL (0.0-0.2); BASO % 0.9 % (0.0-1.0); EOS # 0.2 10^3/uL (0.0-0.5); EOS % 1.8 % (0.0-3.0); HEMATOCRIT 46.6 % (42.0-52.0); HEMOGLOBIN 15.4 g/dl (13.5-17.5); LYMPH # 2.7 10^3/uL (1.5-5.0); LYMPH % 29.8 % (24.0-44.0); MEAN CORPUSCULAR HEMOGLOBIN 28.8 pg (27.0-33.0); MEAN CORPUSCULAR VOLUME 87.3 fl (80.0-96.0); MONO # 0.7 10^3/uL (0.0-0.8); MONO % 7.7 % (0.0-5.0); NEUTROPHILS # 5.4 10^3/uL (1.5-8.5); NEUTROPHILS % 59.6 % (36.0-66.0); PLATELET COUNT, AUTOMATED 153 10^3/uL (150-450); RED BLOOD COUNT 5.34 10^6/uL (4.30-6.10); WHITE BLOOD COUNT 9.1 10^3/uL (4.0-10.0)
[2020-08-03 01:38] LABS: BLOOD UREA NITROGEN 18 MG/DL (7-18); CALCIUM LEVEL 8.9 MG/DL (8.5-10.1); CARBON DIOXIDE LEVEL 23 MEQ/L (21-32); CHLORIDE LEVEL 112 MEQ/L (98-107); CREATININE FOR GFR 0.84 MG/DL (0.70-1.30); GLOMERULAR FILTRATION RATE > 60.0 (>56); GLUCOSE, FASTING 105 MG/DL (70-100); POTASSIUM SERUM 4.5 MEQ/L (3.5-5.1); SODIUM LEVEL 141 MEQ/L (136-145)
[2020-08-03 01:47] LABS: ERYTHROCYTE SEDIMENTATION RATE 6 mm/hr (0-20)
[2020-08-03] MEDS ORDERED: CIPR-249 PO (01:55)
[2020-08-03] MEDS ORDERED: CIPROFLOXACIN 500MG TABLET PO ONE (02:00)
[2020-08-03 02:03] VITALS: BP 157/78
[2020-08-03 02:21] LABS: INR 1.02; PROTHROMBIN TIME 13.6 SECONDS (12.5-14.3)
== END 2020-08-03 02:05 | disposition home or self-care (01) ==
LOC: M ED 23:28
DX: N39.0 Urinary tract infection, site not specified (principal); R31.0 Gross hematuria; I10 Essential (primary) hypertension; E78.5 Hyperlipidemia, unspecified; J44.9 Chronic obstructive pulmonary disease, unspecified; F17.200 Nicotine dependence, unspecified, uncomplicated; Z79.82 Long term (current) use of aspirin; Z79.899 Other long term (current) drug therapy; Z79.01 Long term (current) use of anticoagulants

== ENCOUNTER → 2020-09-21 | Outpatient (CLI) | payer OTHER ==
[~2020-09-21] MED LIST changes: +CIPR-249 PO; +ELIQ5TAB
--- NOTE | 2020-09-22 09:23 | REP ---
INDICATION: ATHSCL [place] ARTERIES OF EXTRM W INTRMD ALLEN, BI COMPARISON: 05/26/2020 TECHNIQUE: Real time cordero scale and color Doppler evaluation of the bilateral lower extremity arterial vasculature using linear high frequency transducer. FINDINGS: There is a history of right axillary-femoral and femoral-femoral bypass grafts along with history of bilateral femoral endarterectomy. Cordero scale and color images demonstrate minimal bilateral atheromatous plaquing with monophasic wave patterns and no focal areas of stenosis or occlusion through the bilateral lower extremities. Right RAKEL: 0.8 Left RAKEL: 0.8 Peak systolic velocities (cm/sec) Common femoral artery: Right 100; Left 32.1 Profunda femoris: Right 109; Left 124 SFA (proximal): Right 52.7; Left 77.0 SFA (mid): Right 53.6; Left 69.0 SFA (distal): Right 53.6; Left 54.5 Popliteal artery: Right 34.3; Left 28.7 TAIWO (prox.): Right 31.5; Left 13.7 Tibioperoneal trunk: Right 18.3; Left 39.0 TALENT ASSOCIATE (prox.): Right 29.3; Left 49.6 TALENT ASSOCIATE (distal): Right 30.2; Left 48.7 TAIWO (distal): Right 40.5; Left 32.1 IMPRESSION: Minimal bilateral atheromatous plaquing without areas of stenosis or occlusion through the bilateral lower extremities. Monophasic wave patterns noted bilaterally. <Electronically signed by Elie Guevara > 09/22/20 [id number]
== END ==
LOC: M RAD 12:45
PROVIDERS: ATTEND Surgery Vascular Surgery
DX: I70.213 Atherosclerosis of native arteries of extremities with intermittent claudication, bilateral legs (principal)

== ENCOUNTER → 2021-05-11 | Outpatient (CLI) | payer OTHER ==
--- NOTE | 2021-05-11 15:21 | REP ---
INDICATION: ENCOUNTER FOR SURGICAL AFTERCARE COMPARISON: None. TECHNIQUE: Real-time sonographic evaluation FINDINGS: All numeric values represent peak systolic velocities in cm/SEC on the right: The ankle brachial index is 0.9. HOUSE REPAIRER: 49.5 monophasic Profunda: 58.1 monophasic SFA proximal: 51.4 monophasic SFA mid: 45.1 monophasic SFA distal: 33.3 monophasic Popliteal: 23.4 monophasic TAIWO proximal: 18.2 monophasic Tibioperoneal trunk: 33.6 monophasic RESOURCE SPECIALIST TEACHER proximal: 24.2 monophasic RESOURCE SPECIALIST TEACHER distal: 24.6 monophasic TAIWO distal: 28.8 monophasic On the left: The ankle brachial index is 0.8 HOUSE REPAIRER: 59.8 triphasic Profunda: 158.1 monophasic SFA proximal: 58.6 monophasic SFA mid: 49.5 monophasic SFA distal: 30.8 monophasic Popliteal: 26.3 monophasic TAIWO proximal: 15.7 monophasic Tibioperoneal trunk: 26.1 monophasic RESOURCE SPECIALIST TEACHER proximal: 23.0 monophasic RESOURCE SPECIALIST TEACHER distal: 30.2 monophasic TAIWO distal: 19.7 monophasic Right axillary artery proximal to the anastomosis: 52.1 triphasic Right axillary artery at the anastomosis: 141.3 monophasic Bypass graft at the right flank: 144.9 monophasic Bypass graft in the right groin: 155.4 monophasic Bypass graft left groin: 61.8 monophasic Right HOUSE REPAIRER at the anastomosis: 75.8 monophasic Left HOUSE REPAIRER at the anastomosis: 70.5 triphasic IMPRESSION: As above <Electronically signed by Keith Vera > 05/11/21 [id number]
== END ==
LOC: M RAD 13:08
PROVIDERS: ATTEND Surgery Vascular Surgery
DX: Z48.812 Encounter for surgical aftercare following surgery on the circulatory system (principal); I70.213 Atherosclerosis of native arteries of extremities with intermittent claudication, bilateral legs

== ENCOUNTER 2025-07-30 13:36 | Emergency (ER) | payer MEDICARE, MEDICAID ==
[~2025-07-30] VITALS: Ht 172.7 cm; Wt 66.0 kg
[~2025-07-30 13:36] MED LIST changes: +ASPI-737 PO; -ASPI1CHW3 PO
[2025-07-30 13:43] VITALS: TEMP 96.8
[2025-07-30 14:51] LABS: BASO # 0.1 10^3/uL (0.0-0.2); BASO % 0.9 % (0.0-1.0); EOS # 0.1 10^3/uL (0.0-0.5); EOS % 1.0 % (0.0-3.0); LYMPH # 2.5 10^3/uL (1.5-5.0); LYMPH % 27.5 % (24.0-44.0); MONO # 0.6 10^3/uL (0.0-0.8); MONO % 6.3 % (2.0-8.0); NEUTROPHILS # 5.8 10^3/uL (1.5-8.5); NEUTROPHILS % 64.1 % (36.0-66.0); PLATELET COUNT, AUTOMATED 148 10^3/uL (150-450)
[2025-07-30] MEDS: GASTROGRAFIN SOLUTION 30ML PO SCH (15:17)
[2025-07-30 15:46] LABS: ALT/SGPT 24.0 U/L (7.0-40); AST/SGOT 18.0 U/L (<34)
[2025-07-30 15:53] VITALS: BP 136/73; O2SAT 100
== END 2025-07-30 17:38 | disposition left against medical advice (07) ==
LOC: M ED 13:36
DX: K46.9 Unspecified abdominal hernia without obstruction or gangrene (principal); N20.0 Calculus of kidney; N28.1 Cyst of kidney, acquired; I70.0 Atherosclerosis of aorta; I10 Essential (primary) hypertension; F17.200 Nicotine dependence, unspecified, uncomplicated; Z53.20 Procedure and treatment not carried out because of patient's decision for unspecified reasons
CPT/HCPCS: 36415; 74176; 80047; 80076; 83690; 85025; 99283; Q9963